=== PATIENT | male | born 1960 | race Caucasian/White ===

== ENCOUNTER → 2017-10-24 14:23 | Outpatient (CLI) | payer MEDICARE ==
[2017-10-24 20:37] LABS: BASOPHILS 0.4 % (0-2); EOSINOPHILS 4.9 % (0-7); HEMATOCRIT 48.1 % (42.0-54.0); IMMATURE GRANULOCYTES 0.5 % (0-5); LYMPHOCYTES 24.4 % (15-50); MCH 30.1 pg (26.0-34.0); MCHC 33.3 g/dL (31.0-37.0); MCV 90.4 fL (80.0-100.0); MEAN PLATELET VOLUME 10.8 fL (7.4-10.4); MONOCYTES 8.1 % (2-11); NEUTROPHILS 61.7 % (40-80); PLATELET COUNT 301 10x3/uL (130-400); RBC 5.32 10x6/uL (4.20-6.10); WBC 9.6 10x3/uL (4.8-10.8)
[2017-10-24 21:41] LABS: ERYTHROCYTE SEDIMENTATION RATE 3 mm/hr (0-20)
== END | disposition home or self-care (01) ==
LOC: D.LABREF 14:23
PROVIDERS: Orthopaedic Surgery
DX: L03.115 Cellulitis of right lower limb (principal)